=== PATIENT | male | born 1970 | race African-American/Black ===

== ENCOUNTER → 2017-07-05 07:00 | Outpatient (CLI) | payer BC ==
[~2017-07-05] VITALS: Ht 190.5 cm; Wt 138.6 kg
--- NOTE | ~2017-07-05 | HEMODYNAMI ---
PATIENT:ACE HENDERSON JR MEDICAL RECORD: [id number] : 74 LOCATION:D.CAT ADMISSION DATE: 07/05/17 Generatedon:07/05/20179:18 Patient name: ACE HENDERSON Patient #: [id number] SSN: [id number] : 1970 Date of study: 07/05/2017 Page: Of Hemodynamic Procedure Report Patient Data Patient Demographics Procedure consent was obtained First Name: ACE Gender: Male Last Name: SANTIAGO Suffix: Patient #: [id number] : 1970 Age: 47 year(s) SSN: [id number] Race: Black Additional ID: [id number] Contact details [address]: [address] [place] [address] State: [place] City: [place] Zip code: [address] Admission Admission Data Admission Date: 07/05/2017 Admission Time: 7:00 Lab Results Lab Result Date: 07/05/2017 Lab Result Time: 0:00 Biochemistry Name Units Result Min Max BUN mg/dl 12 --(-*--)-- 7 18 Creatinine mg/dl 1 --(--*-)-- 0.6 1.3 CBC Name Units Result Min Max Hemoglobin g/dl 13.3 -*(----)-- 13.5 17.5 Procedure Procedure Types Cath Procedure Diagnostic Procedure [facility] w/Coronaries Miscellaneous Procedures Moderate Sedation up to 30 minutes Procedure Description Procedure Date Procedure Date: 07/05/2017 Procedure Start Time: 9:00 Procedure End Time: 9:16 Procedure Staff Name Function Sam Rodriguez MD Performing Physician Carmen Stafford RT Monitor Nohemi Eddy RT Scrub New Cabrera RN Nurse Li Santos RN Nurse Procedure Data Cath Procedure Fluoroscopy Diagnostic fluoroscopy Total fluoroscopy Time: 3.8 time: 3.8 min min Diagnostic fluoroscopy Total fluoroscopy dose: 811 dose: 811 mGy mGy Contrast Material Contrast Material Type Amount (ml) Isovue 300 55 Entry Location Entry Primary Successful Side Size Upsize Upsize Entry Closure Fernandes ccessful Closure Location (Fr) 1 (Fr) 2 (Fr) Remarks Device Remarks Radial Right 6 Fr Mechanical artery Short Compression Estimated blood loss: 5 ml Diagnostic catheters Device Type Used For End Catheter Placement DIAGNOSTIC Zachery 110cm Multi-vessel 5Fr catheter ([id number]) Angiography DIAGNOSTIC Prospect 110cm 5 Multi-vessel Fr catheter ([id number]) Angiography Procedure Complications No complications Procedure Medications Medication Administration Route Dosage 0.9% NaCl I.V. 100 ml/hr Oxygen NC 2 l/min Lidocaine 2% added to field 20 Heparin Flush Bag added to field 2 bags (1000units/500ml NS) Fentanyl I.V. 50 mcg Versed I.V. 1 mg Radial Cocktail added to field 1 syringe (Verapomil 2mg/Nitro 400mcg/Heparin 1500units) Fentanyl I.V. 50 mcg Versed I.V. 1 mg Hemodynamics Rest HGB: 13.3 (g/dl) Heart Rate: 64 (bpm) Pressure Samples Time Site Value (mmHg) Purpose Heart Use Rate(bpm) 9:07 LV 145/-7,7 Snapshot 75 Gradients Valve Time Site Site Mean SEP/DFP Peak To Heart Use 1 2 (mmHg) (sec/min) Peak Rate (mmHg) (bpm) Aortic 9:08 LV AO 73 Snapshots Pre Cath Intra NCS Post Cath Vital Signs Time Heart Resp SPO2 etCO2 NIBP (mmHg) Rhythm Pain Sedation Rate (ipm) (%) (mmHg) Status Level (bpm) 8:47:47 65 18 100 41.6 164/100(129) NSR 0 (11) 10(A) , No pain 8:52:07 61 16 100 43.2 155/96(117) NSR 0 (11) 10(A) , No pain 8:56:29 63 19 100 40.1 156/92(127) NSR 0 (11) 10(A) , No pain 9:00:50 66 16 99 37.9 151/90(116) NSR 0 (11) 9(A) , No pain 9:05:12 67 16 99 35.6 152/93(112) NSR 0 (11) 9(A) , No pain 9:09:28 73 14 98 43.2 134/84(107) NSR 0 (11) 9(A) , No pain 9:13:44 70 14 100 44.7 143/81(113) NSR 0 (11) 10(A) , No pain Medications Time Medication Route Dose Verified Delivered Reason Notes Effectiveness by by 8:38:35 0.9% NaCl I.V. 100ml/hr Sam Li used for Michael Santos RN procedure 8:38:44 Oxygen NC 2 l/min Sam Li Per Michael Santos RN physician 8:38:55 Lidocaine 2% added 20ml Sam Sam for local to vial Michael Rodriguez MD anesthetic field 8:39:13 Heparin Flush added 2 bags Sam Sam used for Bag to Michael Rodriguez MD procedure (1000units/500ml field NS) 8:54:24 Fentanyl I.V. 50 mcg Sam Li for sedation Michael Santos RN 8:54:34 Versed I.V. 1 mg Sam Li for sedation Michael Santos RN 9:00:25 Radial Cocktail added 1 Sam Sam for (Verapomil to syringe Michael Rodriguez MD vasodilation 2mg/Nitro field 400mcg/Heparin 1500units) 9:03:04 Fentanyl I.V. 50 mcg Sam Sam for sedation Michael Rodriguez MD 9:03:12 Versed I.V. 1 mg Sam Sam for sedation Michael Rodriguez MD Procedure Log Time Note 8:33:41 Informed consent obtained and on chart 8:33:45 Diagnostic Cath Status : Elective 8:34:34 Nohemi Eddy RT(R) sent for patient. Start room use. 8:34:34 Time tracking: Regular hours 8:34:39 Plan of Care:Hemodynamics will remain stable., Cardiac rhythm will remain stable., Comfort level will be maintained., Respiratory function will remain adequate., Patient/ family verbilizes understanding of procedure., Procedure tolerated without complication., Recovers from procedure without complications.. 8:35:16 Patient received from Pre/Post Procedure Room to CCL 2 Alert and oriented. Tansferred to table in Supine position. 8:35:17 Warm blankets applied, and kristy hugger turned on for patient comfort. 8:35:17 Correct patient and procedure confirmed by team. 8:35:18 ECG and BP/O2 sat monitors applied to patient. 8:38:35 0.9% NaCl 100ml/hr I.V. was administered by Li Santos RN; used for procedure; 8:38:44 Oxygen 2 l/min NC was administered by Li Santos RN; Per physician; 8:38:55 Lidocaine 2% 20ml vial added to field was administered by Sam Rodriguez MD; for local anesthetic; 8:39:13 Heparin Flush Bag (1000units/500ml NS) 2 bags added to field was administered by Sam Rodriguez MD; used for procedure; 8:46:33 Vital chart was started 8:49:45 Baseline sample Acquired. 8:50:02 Rhythm: sinus rhythm 8:50:39 Full Disclosure recording started 8:50:44 H&P Date Dictated: 07/05/2017 Within 30 days and on chart., H&P Addendum completed by physician on day of procedure. (MUST COMPLETE FOR ALL OUTPATIENTS). 8:50:45 Pre-procedure instructions explained to patient. 8:50:45 Pre-op teaching completed and patient verbalized understanding. 8:50:47 Family in waiting room. 8:50:48 Patient NPO since Midnight. 8:50:58 Is the patient allergic to Iodine/contrast media? No. 8:50:59 Was the patient premedicated? No 8:51:01 Is patient on blood thinner?No 8:51:06 Patient diabetic? Yes. 8:51:08 If diabetic: On Metformin? No 8:51:12 Previous problem with sedation/anesthesia? No ? 8:51:14 Snore? Yes 8:51:14 Sleep apnea? Yes 8:51:16 Deviated septum? No 8:51:17 Opens mouth fully? Yes 8:51:18 Sticks out tongue? Yes 8:51:21 Airway obstruction? No ? 8:51:23 Dentures? No ? 8:51:31 Pre procedure: right dorsailis pedis pulse 2+ Normal; easily identifiable; not easily obliterated 8:51:33 Pre procedure: left dorsailis pedis pulse 2+ Normal; easily identifiable; not easily obliterated 8:51:38 Patient pain scale 0/10 ?. 8:52:06 IV patent on arrival in left forearm with 0.9% NaCl at [facility]. 8:53:41 Lab Result : BUN 12 mg/dl 8:53:41 Lab Result : Creatinine 1 mg/dl 8:53:41 Lab Result : Hemoglobin 13.3 g/dl 8:53:45 Lab results completed and on chart. 8:53:49 Right Radial & Right Groin area was prepped with chlora-prep and draped in sterile fashion 8:53:50 Alarms reviewed by RHaile N. 8:53:51 Sharps counted by scrub and verified by R.N. 8:53:52 Physician arrived 8:53:52 --------ALL STOP TIME OUT------ 8:53:53 Final Timeout: patient, procedure, and site verified with staff and physician. All members of the team are in agreement. 8:53:55 Right Radial & Right Groin site verified by team. 8:53:58 Physical assessment completed. ASA score P 2 - A patient with mild systemic disease as per Sam Rodriguez MD. 8:54:02 Sedation plan: IV Moderate Sedation Medication:Versed, Fentanyl 8:54:24 Fentanyl 50 mcg I.V. was administered by Li Santos RN; for sedation; 8:54:34 Versed 1 mg I.V. was administered by Li Santos RN; for sedation; 8:54:49 Zero performed for pressure channel P1 8:54:59 Zero performed for pressure channel P1 8:55:16 Use device set Femoral Dx 8:55:18 ACIST Syringe (32457) opened to sterile field. 8:55:18 Bag Decanter (2002S) opened to sterile field. 8:55:19 Medline Cath Pack ([id number]) opened to sterile field. 8:55:19 SHEATH 5FR Neligh (DWO619) opened to sterile field. 8:55:20 DIAGNOSTIC WIRE .035 260cm J wire (369773) opened to sterile field. 8:55:21 ACIST Hand Control (73921) opened to sterile field. 8:55:22 ACIST Manifold (24746) opened to sterile field. 8:55:22 DIAGNOSTIC Multipack 5Fr catheter set ([id number]) opened to sterile field. 8:55:24 Tegaderm 4 x 4 (1626W) opened to sterile field. 9:00:25 Radial Cocktail (Verapomil 2mg/Nitro 400mcg/Heparin 1500units) 1 syringe added to field was administered by Sam Rodriguez MD; for vasodilation; 9:00:42 Procedure started. 9:00:47 Local anesthetic to right radial artery with Lidocaine 2% by Sam Rodriguez MD.INITIAL ACCESS ONLY 9:00:57 A 6 Fr Short sheath was inserted into the Right Radial artery 9:03:04 Fentanyl 50 mcg I.V. was administered by Sam Rodriguez MD; for sedation; 9:03:12 Versed 1 mg I.V. was administered by Sam Rodriguez MD; for sedation; 9:05:37 A DIAGNOSTIC Zachery 110cm 5Fr catheter ([id number]) was advanced over the wire and used for Multi-vessel Angiography. 9:07:21 LV hemodynamics recorded. 9:07:22 LV gram done using NOEL 9:07:24 Injector settings: Ml/sec: 56, Volume: 15, 9:07:35 EF : 60 % 9:09:03 Catheter removed. 9:10:11 A DIAGNOSTIC Prospect 110cm 5 Fr catheter (320037) was advanced over the wire and used for Multi-vessel Angiography. 9:11:33 LCA angiography performed. 9:11:36 Injector settings: Ml/sec: 3, Volume: 6, 9:13:59 RCA angiography performed. 9:14:03 Injector settings: Ml/sec: 3, Volume: 6, 9:14:05 Catheter removed. 9:14:22 TR BAND Large ([id number]) opened to sterile field. 9:14:35 Sheath removed intact; hemostasis achieved with Mechanical Compression to the Right Radial artery. 9:14:52 Procedure ended.(Physican Out) 9:15:08 Fluoroscopy time 03.80 minutes. 9:15:12 Fluoroscopy dose: 811 mGy 9:15:12 Flurop Dose total: 811 9:15:29 Contrast amount:Isovue 300 55ml. 9:15:30 Sharps counted by scrub and verified by R.N. 9:15:33 TR band inflated with 10cc of air. 9:15:35 Insertion/operative site no bleeding no hematoma. 9:15:40 Post right radial artery:stable 9:15:42 Post Procedure Pulses reassessed and unchanged 9:15:45 Post procedure rhythm: unchanged. 9:15:47 Estimated blood loss: 5 ml 9:15:49 Post procedure instruction explained to patient.Patient verbalizes understanding. 9:15:50 Patient needs reinforcement of post procedure teaching. 9:16:07 Procedure type changed to Cath procedure, Diagnostic procedure, LHC, LHC w/Coronaries, Miscellaneous Procedures, Moderate Sedation up to 30 minutes 9:16:08 Procedure and supply charges have been captured, reviewed, submitted and are correct. 9:16:13 Procedure Complication : No complications 9:16:15 Vital chart was stopped 9:16:16 See physician's report for complete and final results. 9:16:20 Report given to Pre/Post Procedure Room. 9:16:22 Patient transfered to Pre/Post Procedure Room with Stretcher. 9:16:25 Procedure ended. 9:16:25 Full Disclosure recording stopped 9:16:30 End room use (Document Last) Device Usage Item Name Manufacture Quantity Catalog Hospital Part Current Minimal L ot# / Number Charge Number Stock Stock Serial# Code ACIST Acist 1 49129 204094 856485 306131 20 Syringe Medical (93553) Systems Inc Bag Microtek 1 081083 86077 998665 5 Decanter Medical Inc. () Medline Cardinal 1 [id number] 148233 47460 708353 5 Cath Pack Health ([id number]) SHEATH 5FR Terumo 1 [id number] 154679 308857 609900 40 Neligh (HVW685) DIAGNOSTIC St Tuan 1 294519 425230 330184 862196 30 WIRE .035 260cm J wire (266680) ACIST Hand Acist 1 14704 532471 577276 236058 5 Control Medical (53145) Systems Inc ACIST Acist 1 21375 556038 117623 158943 5 Manifold Medical (04880) Systems Inc DIAGNOSTIC Cardinal 1 [id number] 355744 83596 918173 30 Multipack Health 5Fr catheter set ([id number]) Tegaderm 4 3M 1 1626W 435444 808120 294765 5 x 4 (1626W) DIAGNOSTIC Terumo 1 40-5023 913208 087832 123244 5 Zachery 110cm 5Fr catheter (643514) DIAGNOSTIC Terumo 1 40-5013 831696 578735 277553 5 Prospect 110cm 5 Fr catheter (184195) TR BAND Terumo 1 FIE68-OAM 844078 718415 246052 40 Large ([id number]) Signature Audit [place] Stage Time Signature Unsigned Intra-Procedure 07/05/2017 Carmen Stafford 9:18:30 AM RT(R) Signatures Monitor : Carmen Stafford RT Signature : Date : Time : [address] [id number]
[~2017-07-05 07:00] MED LIST: CENTRUM COMPLE1 EACH PO; GLUCOPHAGE1000 MG PO; HYDROCODONE-APA1 TAB PO; LIPITOR10 MG PO; MOBIC7.5 MG PO; NORVASC10 MG PO; PRINIVIL10 MG PO; VITAMIN D2000 UNIT PO
[2017-07-05 07:23] VITALS: BP 136/79; Ht 190.5 cm; Wt 138.6 kg
[2017-07-05 07:51] LABS: HEMATOCRIT 40.5 % (42.0-54.0); HEMOGLOBIN 13.3 g/dL (13.5-17.5); MCH 26.1 pg (26.0-34.0); MCHC 32.8 g/dL (31.0-37.0); MCV 79.6 fL (80.0-100.0); MEAN PLATELET VOLUME 9.5 fL (7.4-10.4); PLATELET COUNT 282 10x3/uL (130-400); RBC 5.09 10x6/uL (4.20-6.10); RDW 15.5 % (11.5-14.5); WBC 4.1 10x3/uL (4.8-10.8)
[2017-07-05 07:59] LABS: CALC OSMOLALITY 282 mosm/kg (275-300); CALCIUM 8.9 mg/dL (8.5-10.1); CARBON DIOXIDE 28.4 mmol/L (21.0-32.0); CHLORIDE - SERUM 102 mmol/L (98-107); GLUCOSE 194 mg/dL (74-106); SODIUM 139 mmol/L (136-145); UREA NITROGEN 12 mg/dL (7-18); eGFR NON AFRICAN AMERICAN 86 mL/min (90-120)
[2017-07-05 08:19] LABS: EOSINOPHILS 1 % (0-7); HYPOCHROMASIA OCC; LYMPHOCYTES 64 % (15-50); MONOCYTES 5 % (2-11); NEUTROPHILS 28 % (40-80); ROULEAUX OCC
[2017-07-05 08:20] LABS: PLATELET ESTIMATE NORMAL
--- NOTE | 2017-07-05 09:31 | NUR ---
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 TR BAND TO R/WRIST CDI NO BLEEDING NO HEMATOMA NOTED. DR HURLEY PRESENT IN ROOM SPEAKING WITH FAMILY
--- NOTE | 2017-07-05 09:43 | NUR ---
BP 129/76 HR 60 CHEST PAIN DENIED. TR BAND TO R/WRIST CDI NO BLEEDING NO HEMATOMA NOTED. FAMILY AT SIDE
--- NOTE | 2017-07-05 10:13 | NUR ---
SANDWICH AND SODA TO BEDSIDE WITH FAMILY PRESENT TO ASSIST. CHEST PAIN IS DENIED TR BAND TO R/WRIST CDI NO BLEEDING NO HEMATOMA NOTED
--- NOTE | 2017-07-05 10:33 | NUR ---
REPOSITIONED TO SITTING WITH HOB UP 45 DEGREES PATIENT DENIED CHEST PAIN TR BAND REMAINS TO R/WRIST CDI
--- NOTE | 2017-07-05 10:54 | NUR ---
NO DISTRESS NOTED TR BAND REMAINS TO R/WRIST CDI
--- NOTE | 2017-07-05 11:01 | NUR ---
2 CC AIR REMOVED FROM TR BAND WITH NO BLEEDING NOTED
--- NOTE | 2017-07-05 11:23 | NUR ---
4 CC AIR REMOVED FROM TR BAND WITH NO BLEEDING NO HEMATOMA NOTED.
--- NOTE | 2017-07-05 11:51 | NUR ---
4 CC AIR REMOVED FROM TR BAND WITH NO BLEEDING NOTED. PIV REMOVED WITH DRESSING APPLIED. PATIENT DENIED PAIN UP TO GET DRESSED FOR DISCHARGE HOME
--- NOTE | 2017-07-05 12:09 | NUR ---
TR BAND REMOVED WITH DRESSING APPLIED. NO BLEEDING NO HEMATOMA NOTED. VERBAL AND WRITTEN DISCHARGE GONE OVER WITH PATIENT AND . LEFT AMBULATING WITH NURSE TO PARKING FOR TO DRIVE HOME
== END | disposition home or self-care (01) ==
LOC: D.CATH 07:00
PROVIDERS: Internal Medicine Cardiovascular Disease
DX: I20.9 Angina pectoris, unspecified (principal); R94.30 Abnormal result of cardiovascular function study, unspecified; Z87.891 Personal history of nicotine dependence; Z01.812 Encounter for preprocedural laboratory examination